=== PATIENT | female | born 1965 | race Caucasian/White ===

== ENCOUNTER 2018-01-04 10:29 | Emergency (ER) | payer MEDICARE, MEDICAID ==
--- NOTE | 2018-01-04 11:23 | ED ---
Psychiatric Complaint - HPI Summary HPI Summary: This patient is a 52 year old F presenting to [facility] with a chief complaint of SI. Pt states she has thoughts of harming herself. Pt nearly overdosed on her sleep medication yesterday evening. Pt denies HI and hallucinations/delusions. Pert PMHx: eating disorder, bipolar disorder, PTSD. Pt takes Latuda. She was last admitted to psych in May 2017. PMHx: DM but is currently not on medication , and is on a ketogenic diet per her PCP. - History Of Current Complaint Chief Complaint: EDMentalHealth Time Seen by Provider: 01/04/18 10:44 Hx Obtained From: Patient Onset/Duration: Lasting Days, Still Present Timing: Constant Aggravating Factor(s): Nothing Alleviating Factor(s): Nothing Associated Signs And Symptoms: Negative: Hallucinating Related History: Positive For: Prior Psychiatric Issues - Bipolar, PTSD, Eating disorder. Has Suicidal: Reports: Thoughts, With A Plan - Pt nearly overdosed yesterday evening. Has Homicidal: Denies: Thoughts - Allergies/Home Medications Allergies/Adverse Reactions: Allergies Allergy/AdvReac Type Severity Reaction Status Date / Time Latex, Natural Rubber Allergy Severe Hives Verified 01/04/18 10:41 Home Medications: Home Medications Acyclovir* [Zovirax 200 MG CAP*] 200 mg PO DAILY 01/04/18 [History Confirmed ] Estradiol 1 mg PO DAILY 01/04/18 [History Confirmed 01/04/18] Lurasidone(*) [Latuda] 120 mg PO DAILY 01/04/18 [History Confirmed 01/04/18] Magnesium 250 mg PO DAILY 01/04/18 [History Confirmed 01/04/18] Seroquel 100 MG * 150 mg PO DAILY 01/04/18 [History Confirmed 01/04/18] PMH/Surg Hx/FS Hx/Imm Hx Previously Healthy: No Endocrine/Hematology History: Reports: Hx Diabetes Psychiatric History: Reports: Hx Eating Disorder, Hx Post Traumatic Stress Disorder, Hx Bipolar Disorder Infectious Disease History: No Infectious Disease History: Denies: Traveled Outside the [place] in Last 30 Days - Family History Known Family History: Positive: Unknown - adopted - Social History Occupation: Unemployed Lives: Alone Alcohol Use: None Hx Substance Use: No Hx Tobacco Use: No Review of Systems Negative: Fever Psychological: Other - Pos: SI; neg: HI Positive: Other - neg: hallucinations All Other Systems Reviewed And Are Negative: Yes Physical Exam - Summary Physical Exam Summary: GENERAL: Patient is a well-developed and nourished F who is lying comfortable in the stretcher. Patient is not in any acute respiratory distress. HEAD AND FACE: Normocephalic EYES: PERRLA, EOMI x 2. EARS: Hearing grossly intact. MOUTH: Oropharynx within normal limits. NECK: Supple, trachea is midline, no adenopathy, no JVD, no carotid bruit. CHEST: Symmetric, no tenderness at palpation LUNGS: Clear to auscultation bilaterally. No wheezing or crackles. CVS: Regular rate and rhythm, S1 and S2 present, no murmurs or gallops appreciated. ABDOMEN: Soft, non-tender. Bowel sounds are normal. No abdominal abnormal pulsations. EXTREMITIES: Full ROM in all major joints, no edema, no cyanosis or clubbing. NEURO: Alert and oriented x 3. No acute neurological deficits. Speech is normal and follows commands. PSYCH: Positive SI, linear thought content and process, negative HI, negative visual or auditory hallucination. SKIN: Dry and warm Triage Information Reviewed: Yes Vital Signs On Initial Exam: Initial Vitals Temp Pulse Resp BP Pulse Ox 97.7 F 82 12 141/96 98 01/04/18 10:36 01/04/18 10:36 01/04/18 10:36 01/04/18 10:36 01/04/18 10:36 Vital Signs Reviewed: Yes Diagnostics - Vital Signs Vital Signs Temp Pulse Resp BP Pulse Ox 01/04/18 10:36 97.7 F 82 12 141/96 98 - Laboratory Result Diagrams: 01/04/18 11:46 01/04/18 11:46 Lab Statement: Any lab studies that have been ordered have been reviewed, and results considered in the medical decision making process. Course/Dx - Course Course Of Treatment: Pt is medically cleared at 1315. Pt will be signed out to Dr. Bryant at shift change pending MHE and dispo. - Differential Dx/Clinical Impression Provider Diagnosis: Suicidal ideation Discharge - Sign-Out/Discharge Documenting (check all that apply): Sign-Out Patient Signing out patient TO: Bubba Bryant - MHE - Discharge Plan Condition: Stable Disposition: TRANS HIGHER LVL OF CARE FAC Referrals: No Primary Care Phys,NOPCP [Primary Care Provider] - - Billing Disposition and Condition Condition: STABLE Disposition: Trans Higher Lvl of Care Fac - Attestation Statements Document Initiated by Scribe: Yes Documenting Scribe: Pat Weston Provider For Whom Scribe is Documenting (Include Credential): Dr. Timo Sharp MD Scribe Attestation: IPat, scribed for Dr. Timo Sharp MD on 01/06/18 at 2355. Scribe Documentation Reviewed: Yes Provider Attestation: The documentation as recorded by the Pat cobb accurately reflects the service I personally performed and the decisions made by me, Dr. Timo Sharp MD
[2018-01-04 11:43] LABS: Urine Appearance Clear; Urine Blood Negative (Negative); Urine Color Yellow; Urine Ketones Negative (Negative); Urine Protein Negative (Negative); Urine Specific Gravity 1.008 (1.010-1.030); Urine Urobilinogen Negative (Negative)
[2018-01-04 12:06] LABS: ABS Basophils 0.1 10^3/ul (0-0.2); ABS Eosinophils 0.2 10^3/ul (0-0.6); ABS Lymphocytes 1.3 10^3/ul (1.0-4.8); ABS Monocytes 0.4 10^3/ul (0-0.8); ABS Neutrophils 2.8 10^3/ul (1.5-7.7); ABS Nucleated RBC 0 10^3/ul; Eosinophil % 3.4 % (0-6); Hematocrit 37 % (35-47); Hemoglobin 12.6 g/dl (12.0-16.0); Lymphocyte % 27.9 % (25-47); Mean Corpuscular HGB Conc 34 g/dl (31-36); Mean Corpuscular Hemoglobin 31 pg (27-31); Mean Corpuscular Volume 92 fL (80-97); Mean Platelet Volume 9.7 um3 (7.4-10.4); Nucleated Red Blood Cells % 0.1; Platelet Count 145 10^3/ul (150-450); Red Blood Count 4.05 10^6/ul (4.00-5.40); Red Cell Distribution Width 14 % (10.5-15); White Blood Count 4.8 10^3/ul (3.5-10.8)
[2018-01-04 12:24] LABS: EGFR Non-African American 83.4 (>60)
[2018-01-04] MEDS ORDERED: Acetaminophen TAB* 325 MG ONE (13:05)
[2018-01-04] MEDS ORDERED: Acetaminophen TAB* 325 MG PO ONE ×2 (13:07→21:05)
--- NOTE | 2018-01-04 19:31 | ED ---
Progress - Progress Note Progress Note: Pt was signed out from Dr. Sharp to Dr. Bryant. Awaiting disposition. Pt will be signed out to Dr. Sharp. - Consult/PCP Time Called: 15:00 Discharge - Sign-Out/Discharge Documenting (check all that apply): Sign-Out Patient Signing out patient TO: Timo Sharp Receiving patient FROM: Timo Sharp - Discharge Plan Referrals: No Primary Care Phys,NOPCP [Primary Care Provider] - - Attestation Statements Document Initiated by Scribe: Yes Documenting Scribe: Aric Foreman Provider For Whom Scribe is Documenting (Include Credential): Bubba Bryant MD Scribe Attestation: Aric Fernando, scribed for Bubba Bryant MD on 01/05/18 at 0628.
[2018-01-04] MEDS ORDERED: QUEtiapine TAB* 100 MG PO ONE (22:31)
--- NOTE | 2018-01-05 07:50 | ED ---
Progress - Progress Note Progress Note: Pt was signed out from Dr. Bryant upon shift change pending MHE and disposition. - Consult/PCP Time Called: 15:00 Course/Dx - Course Course Of Treatment: Pt is medically cleared at 1315. Pt was signed out upon shift change pending MHE and disposition. Per mental health evaluation, patient should be transferred to a higher level care facility. She is hemodynamically stable and safe for transfer. Pt is agreeable with this plan. - Diagnoses Provider Diagnoses: Suicidal ideation - Provider Notifications Instructed by Provider To: Other - Consult with Dr. Kelley (psychiatry). They accepted the patient for transfer [place] with Dr. Colindres attending. Discharge - Sign-Out/Discharge Documenting (check all that apply): Patient Departure - Transfer to higher level of care facility, Receiving Sign-Out Receiving patient FROM: Bubba Bryant - Upon shift change pending MHE and disposition - Discharge Plan Condition: Stable Disposition: TRANS HIGHER LVL OF CARE FAC - Billing Disposition and Condition Condition: STABLE Disposition: Trans Higher Lvl of Care Fac - Attestation Statements Document Initiated by Scribe: Yes Documenting Scribe: Echo Womack Provider For Whom Scribe is Documenting (Include Credential): Timo Sharp MD Scribe Attestation: I, Echo Womack, scribed for Timo Sharp MD on 01/05/18 at 1516. Scribe Documentation Reviewed: Yes Provider Attestation: The documentation as recorded by the pushpaibEcoh dominguez accurately reflects the service I personally performed and the decisions made by me, Timo Sharp MD
[2018-01-05 14:44] VITALS: BP 140/90
== END 2018-01-05 01:15 | disposition short-term general hospital (02) ==
LOC: ED 10:29
DX: R45.851 Suicidal ideations (principal); F50.9 Eating disorder, unspecified; F31.9 Bipolar disorder, unspecified; F43.10 Post-traumatic stress disorder, unspecified; E11.9 Type 2 diabetes mellitus without complications
CPT/HCPCS: 36415; 80053; 80307; 80320; 80329; 81003; 84443; 85025; 93005; 99285; A9270-GY; G0480